=== PATIENT | male | born 1985 | race Two or more races ===

== ENCOUNTER 2020-01-29 18:07 | Observation (INO) | payer MEDICAID, OTHER ==
[~2020-01-29] VITALS: Ht 175.3 cm; Wt 87.0 kg
--- NOTE | 2020-01-29 18:44 | NUR ---
BIB EMS FOR ETOH INTOXICATION. DRANK 5 SHOTS OF EARLY TIMES TODAY. PT WANTS TO GET OFF ALCOHOL. HE FEELS THAT HE DRINKS ALCOHOL TO SELF-MEDICATE FOR ANXIETY. PT WAS SENT TO [facility] FROM [facility] YESTERDAY FOR MEDICAL CLEARANCE THEN DISCHARGED FROM [facility] BUT DIDN'T GO BACK TO [facility] FOR DETOX.
--- NOTE | 2020-01-29 18:45 | NUR ---
PIV STARTED AND BLOOD DRAWN. PT TO CT AT THIS TIME.
[2020-01-29] MEDS ORDERED: SODIUM CHLORIDE 0.9% 1,000ML IVBOLUS ONE (19:00)
[2020-01-29] MEDS ORDERED: SODIUM CHLORIDE FLUSH 10ML SYR IVF ONE (19:00)
[2020-01-29 19:09] LABS: BASOPHILS % (AUTO) 1 % (0-1); EOSINOPHILS % (AUTO) 0 % (1-7); LYMPHOCYTES % (AUTO) 19 % (22-44); MEAN CORPUSCULAR HEMOGLOBIN 31.2 pg (27.5-34.5); MEAN CORPUSCULAR HGB CONC 34.8 g/dL (33.2-36.2); MEAN PLATELET VOLUME 9.1 fL (7.4-10.4); MONOCYTES % (AUTO) 4 % (2-9); NEUTROPHILS % (AUTO) 77 % (42-75); PLATELET COUNT 208 x10^3/uL (130-400); RED CELL DISTRIBUTION WIDTH 14.2 % (9.4-14.8)
[2020-01-29 19:14] LABS: ALBUMIN 4.4 g/dL (3.4-5.0); ANION GAP 16 mmol/L (5-15); CALCIUM 8.5 mg/dL (8.5-10.1); CHLORIDE 95 mmol/L (98-107)
[2020-01-29 19:19] LABS: MD NO
[2020-01-29 19:20] LABS: CREATININE 0.91 mg/dL (0.7-1.3)
--- NOTE | 2020-01-29 21:40 | NUR ---
Attempted to ambulate pt. Pt has an unsteady gait. Pt given water. Will road test again.
[2020-01-29] MEDS ORDERED: LORazepam 2 MG/ML, 1ML ONE (22:46)
--- NOTE | 2020-01-29 23:06 | NUR ---
Pt complaining of "feeling like he is withdrawaling". Pt has a H/A. States he is "seeing people". Pt tachycardic 120 HR. notified. ordered 1mg ativan IVP. WCTM
[2020-01-29] MEDS ORDERED: LORazepam 2 MG/ML, 1ML IVPush ONE (23:30)
[2020-01-30] MEDS ORDERED: ONDANSETRON 2MG/ML, 2ML ONE (00:48)
--- NOTE | 2020-01-30 00:55 | NUR ---
Float RN: Pt sinus tachy in 140's on monitor. EKG completed. PT is drowsy but A&Ox4. No tremors noted. Otherwise VSS. ERP aware. Pt to be admitted for closer obs. Orders for zofran received and pt medicated. Pt with 600 ml output using urinal.
[2020-01-30] MEDS ORDERED: MAGNESIUM SULFATE 1 GM, THIAMINE 100 MG, FOLIC ACID 1 MG, MVI ADULT 10 ML in SODIUM CHL... IV ONE (01:00)
[2020-01-30] MEDS ORDERED: POTASSIUM CHLORIDE 20 MEQ TAB.ER.PRT PO ONE (01:00)
[2020-01-30] MEDS ORDERED: ONDANSETRON 2MG/ML, 2ML IVPush ONE (01:00)
[2020-01-30] MEDS ORDERED: POTASSIUM CHLORIDE 20 MEQ TAB.ER.PRT ONE (01:29)
[2020-01-30] MEDS ORDERED: HYDR50TA99 PO (01:33)
[2020-01-30] MEDS ORDERED: SERT25TA PO (01:33)
--- NOTE | 2020-01-30 01:52 | NUR ---
Report give to CRISTIANO Crawford.
[2020-01-30 01:56] VITALS: BP 144/88
[2020-01-30] MEDS ORDERED: PROMETHAZINE 25 MG/ML, 1ML ONE (04:19)
[2020-01-30] MEDS ORDERED: LORazepam 2 MG/ML, 1ML ONE (04:19)
[2020-01-30] MEDS ORDERED: LORazepam 2 MG/ML, 1ML IVPush ONE (04:30)
[2020-01-30] MEDS ORDERED: PROMETHAZINE 25 MG/ML, 1ML IM PRN (04:30)
[2020-01-30] MEDS ORDERED: LABETALOL 5MG/ML, 20ML IVPush PRN (06:00)
[2020-01-30] MEDS ORDERED: LORazepam 2 MG/ML, 1ML IVPush PRN (06:00)
[2020-01-30] MEDS ORDERED: POTASSIUM CHLORIDE 20 MEQ, MAGNESIUM SULFATE 2 GM, THIAMINE 200 MG, MVI ADULT 10 ML, FO... IV SCH (06:00)
[2020-01-30] MEDS: ENOXAPARIN 40 MG/0.4 ML SQ SCH (06:00)
[2020-01-30] MEDS ORDERED: ONDANSETRON 2MG/ML, 2ML IVPush PRN (06:00)
[2020-01-30 07:00] LABS: ANION GAP 13 mmol/L (5-15); CALCIUM 7.5 mg/dL (8.5-10.1); CHLORIDE 97 mmol/L (98-107); CREATININE 0.75 mg/dL (0.7-1.3)
[2020-01-30 07:07] VITALS: BP 132/82
[2020-01-30] MEDS ORDERED: LORazepam 1MG TABLET PO PRN ×4 (07:30)
[2020-01-30] MEDS ORDERED: LORazepam 0.5MG TABLET PO PRN (07:30)
[2020-01-30] MEDS ORDERED: LORazepam 2 MG/ML, 1ML IV PRN ×3 (07:30)
[2020-01-30] MEDS: FOLIC ACID 1 MG TABLET PO SCH (08:22)
[2020-01-30] MEDS: MULTIVITAMINS/MINERALS TABLET PO SCH (08:22)
[2020-01-30] MEDS: THIAMINE 100MG TABLET PO SCH (08:22)
[2020-01-30] MEDS: LORazepam 2 MG/ML, 1ML IV PRN ×5 (08:38→20:50)
[2020-01-30] MEDS: PROMETHAZINE 25 MG/ML, 1ML IM PRN ×2 (08:47→13:33)
[2020-01-30] MEDS ORDERED: FLU VACC QS2020-21(6MOS UP)/PF 60MCG/0.5 ML SYR IM ONE (12:00)
[2020-01-30 13:02] VITALS: BP 147/80
[2020-01-30] MEDS: NS + 40MEQ KCL 1,000 ML IV SCH (16:17)
[2020-01-30 16:21] VITALS: BP 143/86
[2020-01-30 17:22] VITALS: BP 120/86
[2020-01-30 19:10] VITALS: BP 153/89
[2020-01-31 01:09] VITALS: BP 162/97
[2020-01-31] MEDS: ENOXAPARIN 40 MG/0.4 ML SQ SCH ×2 (05:03→08:17)
[2020-01-31 05:35] LABS: ALBUMIN 3.7 g/dL (3.4-5.0); ANION GAP 11 mmol/L (5-15); CHLORIDE 96 mmol/L (98-107)
[2020-01-31 05:38] LABS: ALANINE AMINOTRANSFERASE 52 U/L (12-78); ALKALINE PHOSPHATASE 65 U/L (45-117); BILIRUBIN,TOTAL 1.7 mg/dL (0.2-1.0); CREATININE 0.76 mg/dL (0.7-1.3); TOTAL PROTEIN 7.1 g/dL (6.4-8.2)
[2020-01-31 05:41] LABS: BASOPHILS % (AUTO) 1 % (0-1); EOSINOPHILS % (AUTO) 1 % (1-7); LYMPHOCYTES % (AUTO) 12 % (22-44); MEAN CORPUSCULAR HEMOGLOBIN 31.2 pg (27.5-34.5); MEAN CORPUSCULAR HGB CONC 34.3 g/dL (33.2-36.2); MEAN PLATELET VOLUME 9.2 fL (7.4-10.4); MONOCYTES % (AUTO) 4 % (2-9); NEUTROPHILS % (AUTO) 83 % (42-75); PLATELET COUNT 137 x10^3/uL (130-400); RED BLOOD COUNT 4.52 x10^6/uL (4.38-5.82); RED CELL DISTRIBUTION WIDTH 14.3 % (9.4-14.8)
[2020-01-31 06:19] LABS: MD SCAN
[2020-01-31] MEDS: FOLIC ACID 1 MG TABLET PO SCH (08:17)
[2020-01-31] MEDS: POTASSIUM CHLORIDE 20 MEQ TAB.ER.PRT PO SCH ×2 (08:17→17:19)
[2020-01-31] MEDS: THIAMINE 100MG TABLET PO SCH (08:17)
[2020-01-31] MEDS: MULTIVITAMINS/MINERALS TABLET PO SCH (08:17)
[2020-01-31] MEDS: LORazepam 2 MG/ML, 1ML IV PRN ×2 (08:26→15:08)
[2020-01-31 08:32] VITALS: BP 156/97
[2020-01-31] MEDS: NS + 40MEQ KCL 1,000 ML IV SCH (09:00)
[2020-01-31 14:33] VITALS: BP 155/92
[2020-01-31 17:22] LABS: MICROSCOPIC NOT IND
[2020-01-31 18:42] VITALS: BP 138/86
== END 2020-01-31 22:15 | disposition left against medical advice (07) ==
LOC: ED 01-30 01:10 → INTOOBSV 01-30 01:54 → EDIP 01-30 01:54 → 5SO 01-30 02:00
PROVIDERS: ADMIT Family Medicine; ATTEND Family Medicine
DX: F10.229 Alcohol dependence with intoxication, unspecified (principal); F10.239 Alcohol dependence with withdrawal, unspecified; R00.0 Tachycardia, unspecified; R11.2 Nausea with vomiting, unspecified; E87.1 Hypo-osmolality and hyponatremia; E87.6 Hypokalemia; F41.8 Other specified anxiety disorders; R41.0 Disorientation, unspecified; G31.2 Degeneration of nervous system due to alcohol; R45.4 Irritability and anger; E86.0 Dehydration; S00.81XA Abrasion of other part of head, initial encounter; X58.XXXA Exposure to other specified factors, initial encounter; Y93.89 Activity, other specified; Y92.89 Other specified places as the place of occurrence of the external cause; Z79.899 Other long term (current) drug therapy
CPT/HCPCS: 36415; 70450; 80048; 80053; 80307; 81003; 82040; 83735; 84443; 85025; 93005; 96361; 96365; 96366; 96367; 96368; 96372; 96375; 96376; 99285; G0378; J2060; J2405; J2550; J3411; J3475; J3480; J7030; J7042; Q0177